=== PATIENT | female | born 1955 | race Caucasian/White ===

== ENCOUNTER → 2016-10-16 | Outpatient (CLI) | payer MEDICARE, MEDICAID ==
[~2016-10-16] MED LIST: ALKA SELTZER PL PO; AMBIEN 5MG TABLE5 MG PO; CLARITIN 1010 MG/TAB PO; FLAGYL500 MG PO; LISINOPRIL/HCTZ1 TAB PO; LORTAB 5/500 501 TAB PO; NAPROSYN500 MG PO; NATURAL L-LYSI500 MG PO; NORCO 325 MG-51 TAB PO; NORVASC 10MG10 MG PO; OMEGA-31 SGL PO; OXY IR5 MG PO; OXYCODONE15 MG PO; PHENERGAN 25 TA25 MG PO; PRED FORTE 1 ML1 ML OU; PRIL40 PO; PRILOSEC 20MG20 MG PO; RESTASIS 60VL PO; TOPROL XL 50MG50 MG PO; TYLENOL 8 HR PO; TYLENOL PM EXTR1 TA1 PO; ULTRAM 50MG TAB50 MG PO; ULTRAM ER200 MG PO; VITAMIN B-1000 MCG/T PO; VITAMIN D 1001000 IU PO; VITAMIN D1000 IU PO; ZOFRAN 4MG T4 MG/TAB PO; ZOFRAN8 MG PO; ZYRTEC 10MG10 MG PO
== END ==
LOC: MC.RAD 09:55
DX: Z12.31 Encounter for screening mammogram for malignant neoplasm of breast (principal)

== ENCOUNTER 2017-01-31 08:22 | Day surgery (SDC) | payer MEDICARE, MEDICAID ==
[~2017-01-31] VITALS: Ht 167.6 cm; Wt 98.6 kg
[~2017-01-31 08:22] MED LIST changes: -AMBIEN 5MG TABLE5 MG PO; -NATURAL L-LYSI500 MG PO; -NORCO 325 MG-51 TAB PO; -NORVASC 10MG10 MG PO; -PHENERGAN 25 TA25 MG PO; -PRED FORTE 1 ML1 ML OU; -PRIL40 PO; -RESTASIS 60VL PO; -TOPROL XL 50MG50 MG PO; -TYLENOL 8 HR PO; -VITAMIN D 1001000 IU PO; -ZYRTEC 10MG10 MG PO
[2017-01-31 09:07] VITALS: BP 187/98; PULSE 77; TEMP 98.2
[2017-01-31] MEDS ORDERED: TYLENOL 8 HR PO (09:34)
[2017-01-31] MEDS ORDERED: NORVASC 10MG10 MG PO (09:34)
[2017-01-31] MEDS ORDERED: AMBIEN 5MG TABLE5 MG PO (09:35)
[2017-01-31] MEDS ORDERED: NATURAL L-LYSI500 MG PO (09:39)
[2017-01-31] MEDS ORDERED: RESTASIS 60VL PO (09:40)
[2017-01-31] MEDS ORDERED: PRED FORTE 1 ML1 ML OU (09:41)
[2017-01-31 10:34] VITALS: BP 161/108; PULSE 77; TEMP 98.3
[2017-01-31 10:50] VITALS: BP 173/91; PULSE 70
[2017-01-31 11:05] VITALS: BP 188/95; PULSE 70
[2017-01-31] MEDS ORDERED: PRIL40 PO (11:13)
[2017-01-31 11:20] VITALS: BP 166/88; PULSE 68
== END 2017-01-31 11:30 | disposition home or self-care (01) ==
LOC: SDCO 08:22
DX: K22.70 Barrett's esophagus without dysplasia (principal); K22.2 Esophageal obstruction; K29.30 Chronic superficial gastritis without bleeding; K21.9 Gastro-esophageal reflux disease without esophagitis; K57.92 Diverticulitis of intestine, part unspecified, without perforation or abscess without bleeding; I10 Essential (primary) hypertension; M19.90 Unspecified osteoarthritis, unspecified site; Z96.653 Presence of artificial knee joint, bilateral; Z90.49 Acquired absence of other specified parts of digestive tract; Z90.710 Acquired absence of both cervix and uterus
CPT/HCPCS: C1726; J2704; J7030

== ENCOUNTER 2017-03-09 10:20 | Emergency (ER) | payer MEDICARE, MEDICAID ==
[~2017-03-09] VITALS: Ht 167.6 cm; Wt 98.5 kg
[~2017-03-09 10:20] MED LIST changes: +AMBIEN 5MG TABLE5 MG PO; +NATURAL L-LYSI500 MG PO; +NORVASC 10MG10 MG PO; +PRED FORTE 1 ML1 ML OU; +PRIL40 PO; +RESTASIS 60VL PO; +TYLENOL 8 HR PO
[2017-03-09 10:21] VITALS: TEMP 99.2
[2017-03-09 10:51] LABS: BASO # 0.1 (0.0-0.2); BASO % 0.7 % (0.0-2.0); EOS # 0.1 (0.0-0.7); EOS % 1.5 % (0-4.0); GRAN # 3.2 (1.4-6.5); GRAN % 44.7 % (42.2-75.2); HEMATOCRIT 39.7 % (37.0-47.0); HEMOGLOBIN 14.2 g/dl (12.5-16.0); LYMPH # 3.4 (1.2-3.4); LYMPH % 46.7 % (20.0-51.0); MEAN CELL VOLUME 93 fl (80.0-100.0); MEAN CORPUSCULAR HEMOGLOBIN 33 pg (27.0-31.0); MEAN CORPUSCULAR HGB CONC 36 g/dl (33.0-37.0); MEAN PLATELET VOLUME 9.7 fl (7.4-10.4); MONO # 0.4 (0.1-0.6); MONO % 6.1 % (1.7-9.3); PLATELET COUNT 220 K/mm3 (130-400); RED BLOOD COUNT 4.28 M/mm3 (4.10-5.30); WHITE BLOOD COUNT 7.2 K/mm3 (4.8-10.8)
[2017-03-09] MEDS ORDERED: NORVASC 10MG10 MG PO (11:08)
[2017-03-09 11:12] LABS: PH 6 (5-8); SQUAMOUS EPITHELIAL 0-2 /hpf; URINE APPEARANCE Clear; URINE BACTERIA None Seen /hpf; URINE BILIRUBIN Negative (NEGATIVE); URINE BLOOD Negative (NEGATIVE); URINE COLOR Yellow; URINE GLUCOSE Negative (NEGATIVE); URINE KETONE Negative (NEGATIVE); URINE RBC None Seen /hpf; URINE UROBILINOGEN Negative (NEGATIVE); URINE WBC 0-2 /hpf
[2017-03-09] MEDS ORDERED: AMBIEN 5MG TABLE5 MG PO (11:12)
[2017-03-09] MEDS ORDERED: ZYRTEC 10MG10 MG PO (11:14)
[2017-03-09] MEDS ORDERED: VITAMIN D 1001000 IU PO (11:15)
[2017-03-09 11:28] LABS: ADJUSTED CALCIUM 9.1 mg/dL (8.4-10.2); ALBUMIN 4.6 gm/dL (3.5-5.0); CALCIUM 9.6 mg/dL (8.4-10.2); CREATININE, serum 0.65 mg/dL (0.52-1.25); POTASSIUM 3.6 mmol/L (3.4-5.0); TOTAL PROTEIN 7.9 gm/dL (6.4-8.2)
[2017-03-09] MEDS ORDERED: PHENERGAN 25 TA25 MG PO (12:22)
[2017-03-09] MEDS ORDERED: NORCO 325 MG-51 TAB PO (12:22)
[2017-03-09] MEDS ORDERED: TOPROL XL 50MG50 MG PO (12:22)
[2017-03-09 13:30] VITALS: BP 170/97; PULSE 96
== END 2017-03-09 13:50 | disposition home or self-care (01) ==
LOC: COL.ER 10:20
PROVIDERS: Emergency Medicine
DX: R42 Dizziness and giddiness (principal); T50.2X5A Adverse effect of carbonic-anhydrase inhibitors, benzothiadiazides and other diuretics, initial encounter; R10.13 Epigastric pain; G89.29 Other chronic pain; K22.70 Barrett's esophagus without dysplasia; R11.0 Nausea; R51 Headache; R20.2 Paresthesia of skin; I10 Essential (primary) hypertension
CPT/HCPCS: J2550; J7030

== ENCOUNTER → 2017-03-28 | Outpatient (CLI) | payer MEDICARE, MEDICAID ==
[~2017-03-28] MED LIST changes: +NORCO 325 MG-51 TAB PO; +PHENERGAN 25 TA25 MG PO; +TOPROL XL 50MG50 MG PO; +VITAMIN D 1001000 IU PO; +ZYRTEC 10MG10 MG PO
== END ==
LOC: COL.RAD 09:35
DX: N28.89 Other specified disorders of kidney and ureter (principal)

== ENCOUNTER → 2017-03-31 | Outpatient (CLI) | payer MEDICARE, MEDICAID | LOC: COL.RAD 12:43 | DX: K57.30 Diverticulosis of large intestine without perforation or abscess without bleeding (principal); K44.9 Diaphragmatic hernia without obstruction or gangrene; N13.30 Unspecified hydronephrosis; Z90.710 Acquired absence of both cervix and uterus; Z90.49 Acquired absence of other specified parts of digestive tract | CPT/HCPCS: Q9967 ==

== ENCOUNTER 2017-07-14 09:23 | Emergency (ER) | payer MEDICARE, MEDICAID ==
[~2017-07-14] VITALS: Ht 167.6 cm; Wt 92.7 kg
[2017-07-14 09:26] VITALS: TEMP 98.5
[2017-07-14 10:19] LABS: BASO # 0.1 (0.0-0.2); BASO % 0.8 % (0.0-2.0); EOS % 0.6 % (0-4.0); GRAN # 4.2 (1.4-6.5); HEMATOCRIT 46.3 % (37.0-47.0); HEMOGLOBIN 15.2 g/dl (12.5-16.0); LYMPH # 2.5 (1.2-3.4); MEAN CELL VOLUME 100 fl (80.0-100.0); MEAN CORPUSCULAR HEMOGLOBIN 33 pg (27.0-31.0); MEAN CORPUSCULAR HGB CONC 33 g/dl (33.0-37.0); MONO # 0.4 (0.1-0.6); MONO % 5.3 % (1.7-9.3); PLATELET COUNT 237 K/mm3 (130-400); RED BLOOD COUNT 4.62 M/mm3 (4.10-5.30); WHITE BLOOD COUNT 7.2 K/mm3 (4.8-10.8)
[2017-07-14 10:31] LABS: ADJUSTED CALCIUM 9.2 mg/dL (8.4-10.2); ALANINE AMINOTRANSFERASE 78 U/L (9-52); ALBUMIN 5.6 gm/dL (3.5-5.0); ALKALINE PHOSPHATASE 172 U/L (50-136); ANION GAP 16 mmol/L (7-16); BLOOD UREA NITROGEN 14 mg/dL (7-17); CALCIUM 10.5 mg/dL (8.4-10.2); CARBON DIOXIDE 24 mmol/L (22-30); CHLORIDE 102 mmol/L (98-107); CREATININE, serum 0.62 mg/dL (0.52-1.25); GLUCOSE 93 mg/dL (74-106); MAGNESIUM 2.1 mg/dL (1.6-2.3); POTASSIUM 3.9 mmol/L (3.4-5.0); SODIUM 142 mmol/L (137-145); TOTAL PROTEIN 9.2 gm/dL (6.4-8.2)
[2017-07-14 10:45] LABS: TROPONIN-I < 0.012 ng/mL (0.000-0.034)
[2017-07-14] MEDS ORDERED: PRIL40 PO (11:03)
[2017-07-14] MEDS ORDERED: COZAAR 25MG25 MG/TAB PO (11:03)
[2017-07-14] MEDS ORDERED: NORVASC 10MG10 MG PO (11:03)
[2017-07-14] MEDS ORDERED: ULTRAM 50MG TAB50 MG PO (11:05)
[2017-07-14] MEDS ORDERED: ZYRTEC 10MG10 MG PO (11:05)
[2017-07-14] MEDS ORDERED: AMBIEN 5MG TABLE5 MG PO (11:06)
[2017-07-14] MEDS ORDERED: ALKA-SELTZER GO1 TE1 PO (11:06)
[2017-07-14] MEDS ORDERED: TYLENOL 8 HR PO (11:06)
[2017-07-14] MEDS ORDERED: CEPHALEXIN500 M1 PO (11:07)
[2017-07-14] MEDS ORDERED: STOOL SOFTENER100 M2 PO (11:08)
[2017-07-14] MEDS ORDERED: EPA FISH OIL1 SGL PO (11:08)
[2017-07-14] MEDS ORDERED: FLORAJEN A20 Billion PO (11:08)
[2017-07-14] MEDS ORDERED: L-LYSINE500 M1 PO (11:09)
[2017-07-14] MEDS ORDERED: VITAMIN B COMPL1 SGL PO (11:09)
[2017-07-14] MEDS ORDERED: MASON NATURAL2000 IU PO (11:09)
[2017-07-14] MEDS ORDERED: LINZESS290CAP PO (11:10)
[2017-07-14] MEDS ORDERED: RESTASIS 60VL OU (11:11)
[2017-07-14] MEDS ORDERED: REFRESH TEARS 330 ML OP (11:14)
[2017-07-14] MEDS ORDERED: VALIUM 5MG T5 MG/TAB PO (12:48)
[2017-07-14] MEDS ORDERED: BUSPAR5 MG PO (12:48)
[2017-07-14 13:35] VITALS: BP 163/92; PULSE 83
== END 2017-07-14 13:35 | disposition home or self-care (01) ==
LOC: COL.ER 09:23
PROVIDERS: Emergency Medicine
DX: R25.1 Tremor, unspecified (principal); I10 Essential (primary) hypertension; Z90.710 Acquired absence of both cervix and uterus; Z90.49 Acquired absence of other specified parts of digestive tract
CPT/HCPCS: J2060; J2405; J7030

== ENCOUNTER → 2017-08-08 | Outpatient (CLI) | payer MEDICARE, MEDICAID ==
[~2017-08-08] VITALS: Ht 167.6 cm; Wt 88.3 kg
[~2017-08-08] MED LIST changes: +ALKA-SELTZER GO1 TE1 PO; +BUSPAR5 MG PO; +CEPHALEXIN500 M1 PO; +COZAAR 25MG25 MG/TAB PO; +EPA FISH OIL1 SGL PO; +FLORAJEN A20 Billion PO; +L-LYSINE500 M1 PO; +LINZESS290CAP PO; +MASON NATURAL2000 IU PO; +PROBIOTIC-SUNMARK PO; +REFRESH TEARS 330 ML OP; +RESTASIS 60VL OU; +STOOL SOFTENER100 M2 PO; +VALIUM 5MG T5 MG/TAB PO; +VITAMIN B COMPL1 SGL PO
[2017-08-08 12:06] VITALS: BP 184/100; PULSE 82
[2017-08-08 13:40] VITALS: BP 148/75; PULSE 86
[2017-08-08 13:50] VITALS: BP 169/98; PULSE 76
[2017-08-08 14:10] VITALS: BP 176/96; PULSE 74
== END ==
LOC: COL.RAD 10:50
DX: J34.1 Cyst and mucocele of nose and nasal sinus (principal); R41.89 Other symptoms and signs involving cognitive functions and awareness
CPT/HCPCS: G9654; J2704

== ENCOUNTER → 2017-10-27 | Outpatient (CLI) | payer MEDICARE, MEDICAID ==
[~2017-10-27] MED LIST changes: +LINZESS72 MCG PO
== END ==
LOC: MC.RAD 10:38
DX: Z12.31 Encounter for screening mammogram for malignant neoplasm of breast (principal)

== ENCOUNTER → 2017-11-07 | Outpatient (CLI) | payer MEDICARE, MEDICAID | LOC: COL.RAD 07:47 | DX: K29.70 Gastritis, unspecified, without bleeding (principal) | CPT/HCPCS: A9541 ==

== ENCOUNTER 2017-11-16 10:11 | Emergency (ER) | payer MEDICARE, MEDICAID ==
[~2017-11-16] VITALS: Ht 167.6 cm; Wt 89.4 kg
[2017-11-16 10:14] VITALS: BP 173/88; PULSE 79; TEMP 98.7
[2017-11-16 10:35] LABS: COLLECTION METHOD CLEAN CATCH
[2017-11-16 10:42] LABS: PH 6 (5-8); SQUAMOUS EPITHELIAL None Seen /hpf; URINE APPEARANCE Clear; URINE BACTERIA None Seen /hpf; URINE BILIRUBIN Negative (NEGATIVE); URINE BLOOD Negative (NEGATIVE); URINE COLOR Colorless; URINE GLUCOSE Negative (NEGATIVE); URINE KETONE Negative (NEGATIVE); URINE LEUKOCYTE ESTERASE Trace (NEGATIVE); URINE NITRATE Negative (NEGATIVE); URINE PROTEIN(semi-quant) Negative (NEGATIVE); URINE RBC 0-2 /hpf; URINE UROBILINOGEN Negative (NEGATIVE)
[2017-11-16 11:10] LABS: ALBUMIN 4.5 gm/dL (3.5-5.0); BILIRUBIN,TOTAL 0.5 mg/dL (0.0-1.0); CALCIUM 9.6 mg/dL (8.4-10.2); CREATININE, serum 0.64 mg/dL (0.52-1.25); POTASSIUM 3.9 mmol/L (3.4-5.0); TOTAL PROTEIN 7.9 gm/dL (6.4-8.2)
[2017-11-16 11:49] LABS: BASO % 0.7 % (0.0-2.0); EOS # 0.1 (0.0-0.7); EOS % 1.1 % (0-4.0); GRAN # 3.1 (1.4-6.5); GRAN % 55.9 % (42.2-75.2); HEMATOCRIT 39.6 % (37.0-47.0); HEMOGLOBIN 14.2 g/dl (12.5-16.0); LYMPH % 35.9 % (20.0-51.0); MEAN CELL VOLUME 93 fl (80.0-100.0); MEAN CORPUSCULAR HEMOGLOBIN 33 pg (27.0-31.0); MEAN CORPUSCULAR HGB CONC 36 g/dl (33.0-37.0); MEAN PLATELET VOLUME 9.9 fl (7.4-10.4); MONO # 0.3 (0.1-0.6); MONO % 6.2 % (1.7-9.3); PLATELET COUNT 202 K/mm3 (130-400); RED BLOOD COUNT 4.25 M/mm3 (4.10-5.30); REDCELL DISTRIBUTION WIDTH-CV 13.2 % (11.5-14.5)
[2017-11-16] MEDS ORDERED: AMOXICILLIN875 MG PO (12:08)
[2017-11-16] MEDS ORDERED: ZOFRAN ODT4 MG PO (12:08)
== END 2017-11-16 12:19 | disposition home or self-care (01) ==
LOC: COL.ER 10:11
PROVIDERS: Emergency Medicine
DX: J32.9 Chronic sinusitis, unspecified (principal); R42 Dizziness and giddiness; I10 Essential (primary) hypertension

== ENCOUNTER 2017-11-18 12:08 | Emergency (ER) | payer MEDICARE, MEDICAID ==
[~2017-11-18] VITALS: Ht 167.6 cm; Wt 88.6 kg
[~2017-11-18 12:08] MED LIST changes: +AMOXICILLIN875 MG PO; +ZOFRAN ODT4 MG PO
[2017-11-18 12:10] VITALS: TEMP 98.5
[2017-11-18 13:03] LABS: BASO % 0.5 % (0.0-2.0); EOS # 0.1 (0.0-0.7); EOS % 1.2 % (0-4.0); GRAN # 2.7 (1.4-6.5); GRAN % 47.8 % (42.2-75.2); HEMATOCRIT 39.7 % (37.0-47.0); HEMOGLOBIN 13.8 g/dl (12.5-16.0); LYMPH # 2.4 (1.2-3.4); MEAN CELL VOLUME 94 fl (80.0-100.0); MEAN CORPUSCULAR HEMOGLOBIN 33 pg (27.0-31.0); MEAN CORPUSCULAR HGB CONC 35 g/dl (33.0-37.0); MEAN PLATELET VOLUME 9.5 fl (7.4-10.4); MONO # 0.5 (0.1-0.6); MONO % 8.3 % (1.7-9.3); PLATELET COUNT 211 K/mm3 (130-400); RED BLOOD COUNT 4.22 M/mm3 (4.10-5.30); REDCELL DISTRIBUTION WIDTH-CV 13.2 % (11.5-14.5)
[2017-11-18 13:05] LABS: COLLECTION METHOD CLEAN CATCH
[2017-11-18 13:10] LABS: PH 6 (5-8); SQUAMOUS EPITHELIAL None Seen /hpf; URINE APPEARANCE Clear; URINE BACTERIA None Seen /hpf; URINE BILIRUBIN Negative (NEGATIVE); URINE BLOOD Negative (NEGATIVE); URINE COLOR Straw; URINE GLUCOSE Negative (NEGATIVE); URINE KETONE Negative (NEGATIVE); URINE LEUKOCYTE ESTERASE Trace (NEGATIVE); URINE NITRATE Negative (NEGATIVE); URINE PROTEIN(semi-quant) Negative (NEGATIVE); URINE RBC 0-2 /hpf; URINE UROBILINOGEN Negative (NEGATIVE)
[2017-11-18 13:14] LABS: ALANINE AMINOTRANSFERASE 31 U/L (9-52); ALBUMIN 4.4 gm/dL (3.5-5.0); ALKALINE PHOSPHATASE 101 U/L (50-136); ANION GAP 13 mmol/L (7-16); AST,SGOT 30 U/L (15-37); BILIRUBIN,TOTAL 0.4 mg/dL (0.0-1.0); BLOOD UREA NITROGEN 15 mg/dL (7-17); CALCIUM 9.4 mg/dL (8.4-10.2); CARBON DIOXIDE 28 mmol/L (22-30); CHLORIDE 102 mmol/L (98-107); CREATININE, serum 0.59 mg/dL (0.52-1.25); GLUCOSE 91 mg/dL (74-106); POTASSIUM 3.7 mmol/L (3.4-5.0); SODIUM 144 mmol/L (137-145); TOTAL PROTEIN 7.8 gm/dL (6.4-8.2)
[2017-11-18 13:22] LABS: ACETAMINOPHEN < 10 ug/mL (10-30); ALCOHOL(ethanol),MEDICAL < 10 mg/dL; SALICYLATE < 1.0 mg/dL
[2017-11-18 13:31] LABS: TRICYCLIC ANTIDEPRESS URINE NEGATIVE
[2017-11-18] MEDS ORDERED: NORVASC 10MG10 MG PO (13:52)
[2017-11-18] MEDS ORDERED: COZAAR 25MG25 MG/TAB PO (13:52)
[2017-11-18 21:00] VITALS: BP 151/86; PULSE 73
== END 2017-11-18 21:57 ==
LOC: COL.ER 12:08
PROVIDERS: Physician Assistant
DX: F32.9 Major depressive disorder, single episode, unspecified (principal); I10 Essential (primary) hypertension; F41.9 Anxiety disorder, unspecified; K21.9 Gastro-esophageal reflux disease without esophagitis

== ENCOUNTER 2018-03-12 09:35 | Emergency (ER) | payer MEDICARE, MEDICAID ==
[~2018-03-12] VITALS: Ht 167.6 cm; Wt 90.9 kg
[2018-03-12 09:39] VITALS: TEMP 98.1
[2018-03-12] MEDS ORDERED: KLONOPIN 0.5MG0.5 MG PO (09:57)
[2018-03-12] MEDS ORDERED: AMITRIPTYLINE H50 M1 PO (10:02)
[2018-03-12] MEDS ORDERED: VENLAFAXINE225 MG PO (10:03)
[2018-03-12] MEDS ORDERED: REMERON30 MG PO (10:04)
[2018-03-12] MEDS ORDERED: NORCO 325 MG-51 TAB PO (10:24)
[2018-03-12 10:44] VITALS: BP 166/95; PULSE 82
== END 2018-03-12 10:46 | disposition home or self-care (01) ==
LOC: COL.ER 09:35
DX: S40.012A Contusion of left shoulder, initial encounter (principal); K21.9 Gastro-esophageal reflux disease without esophagitis; I10 Essential (primary) hypertension; Z79.891 Long term (current) use of opiate analgesic; W01.0XXA Fall on same level from slipping, tripping and stumbling without subsequent striking against object, initial encounter; Y92.009 Unspecified place in unspecified non-institutional (private) residence as the place of occurrence of the external cause

== ENCOUNTER → 2018-03-23 | Outpatient (CLI) | payer MEDICARE, MEDICAID ==
[~2018-03-23] VITALS: Ht 167.6 cm; Wt 97.0 kg
[~2018-03-23] MED LIST changes: +AMITRIPTYLINE H50 M1 PO; +KLONOPIN 0.5MG0.5 MG PO; +REMERON30 MG PO; +VENLAFAXINE225 MG PO
[2018-03-23 12:37] VITALS: BP 161/92; PULSE 94
[2018-03-23 14:15] VITALS: BP 127/73; PULSE 69
[2018-03-23 14:30] VITALS: BP 119/72; PULSE 68
[2018-03-23 14:45] VITALS: BP 127/80; PULSE 67
== END ==
LOC: COL.RAD 12:06
DX: M75.122 Complete rotator cuff tear or rupture of left shoulder, not specified as traumatic (principal); M25.412 Effusion, left shoulder
CPT/HCPCS: J2250; J2704; J3010

== ENCOUNTER 2018-08-31 16:38 | Emergency (ER) | payer MEDICARE, MEDICAID ==
[~2018-08-31] VITALS: Ht 167.6 cm; Wt 100.0 kg
[2018-08-31 16:40] VITALS: TEMP 97.8
[2018-08-31 18:19] VITALS: BP 134/82; PULSE 80
== END 2018-08-31 18:16 | disposition home or self-care (01) ==
LOC: COL.ER 16:38
DX: M25.562 Pain in left knee (principal); I10 Essential (primary) hypertension; M79.7 Fibromyalgia; Z90.49 Acquired absence of other specified parts of digestive tract; Z90.710 Acquired absence of both cervix and uterus
CPT/HCPCS: J1885; J2360; J2550; J3010

== ENCOUNTER → 2018-10-16 10:00 | Outpatient (RCR) | payer MEDICARE, MEDICAID | END | disposition home or self-care (01) | LOC: WSC 09-11 10:39 → WSPT 10-02 14:30 → WSC 10-06 12:45 | DX: M25.562 Pain in left knee (principal) ==

== ENCOUNTER → 2018-11-23 | Outpatient (CLI) | payer MEDICARE, MEDICAID | LOC: MC.RAD 13:56 | DX: Z12.31 Encounter for screening mammogram for malignant neoplasm of breast (principal) ==

== ENCOUNTER → 2020-01-05 | Outpatient (CLI) | payer MEDICARE, MEDICAID | LOC: MC.RAD 11:13 | DX: Z12.31 Encounter for screening mammogram for malignant neoplasm of breast (principal) ==

== ENCOUNTER → 2021-01-05 | Outpatient (CLI) | payer MEDICARE, MEDICAID | LOC: MC.RAD 11:18 | DX: Z12.31 Encounter for screening mammogram for malignant neoplasm of breast (principal) ==

== ENCOUNTER 2021-12-18 12:45 | Outpatient (RCR) | payer MEDICARE, MEDICAID | END 2021-12-22 | disposition still patient (30) | LOC: WSPT | DX: M79.7 Fibromyalgia (principal); M54.50 Low back pain, unspecified ==

== ENCOUNTER 2022-01-17 11:15 | Outpatient (RCR) | payer MEDICARE, MEDICAID | END 2022-01-22 | disposition home or self-care (01) | LOC: WSPT | DX: M79.7 Fibromyalgia (principal); M54.50 Low back pain, unspecified; G89.29 Other chronic pain ==

== ENCOUNTER → 2022-01-24 | Outpatient (CLI) | payer MEDICARE, MEDICAID | LOC: MC.RAD 10:15 | DX: Z12.31 Encounter for screening mammogram for malignant neoplasm of breast (principal) ==

== ENCOUNTER 2022-02-13 10:30 | Outpatient (RCR) | payer MEDICARE, MEDICAID ==
[2022-02-15] MEDS ORDERED: BENTYL 20MG20 MG/TAB PO (08:11)
[2022-02-15] MEDS ORDERED: DESYREL 50MG50 MG PO (08:11)
[2022-02-15] MEDS ORDERED: CEPHALEXIN500 M1 PO (08:12)
[2022-02-15] MEDS ORDERED: EFFEXOR XR75 MG/CAP PO (08:12)
[2022-02-15] MEDS ORDERED: MELATONIN ER10 MG PO (08:16)
[2022-02-15] MEDS ORDERED: PEPTO BISMOL262 MG PO (08:16)
[2022-02-15] MEDS ORDERED: METAMUCIL0.52 G1 PO (08:17)
[2022-02-15] MEDS ORDERED: LYSINE 500500 MG/TAB PO (08:19)
== END 2022-02-21 | disposition home or self-care (01) ==
LOC: WSPT
DX: M79.7 Fibromyalgia (principal); M54.50 Low back pain, unspecified; G89.29 Other chronic pain

== ENCOUNTER 2022-02-15 07:07 | Day surgery (SDC) | payer MEDICARE, MEDICAID ==
[~2022-02-15] VITALS: Ht 167.6 cm; Wt 104.6 kg
[2022-02-15 07:53] VITALS: BP 174/91; PULSE 83; TEMP 97.3
[2022-02-15] MEDS ORDERED: DESYREL 50MG50 MG PO (08:11)
[2022-02-15] MEDS ORDERED: BENTYL 20MG20 MG/TAB PO (08:11)
[2022-02-15] MEDS ORDERED: EFFEXOR XR75 MG/CAP PO (08:12)
[2022-02-15] MEDS ORDERED: CEPHALEXIN500 M1 PO (08:12)
[2022-02-15] MEDS ORDERED: PEPTO BISMOL262 MG PO (08:16)
[2022-02-15] MEDS ORDERED: MELATONIN ER10 MG PO (08:16)
[2022-02-15] MEDS ORDERED: METAMUCIL0.52 G1 PO (08:17)
[2022-02-15] MEDS ORDERED: LYSINE 500500 MG/TAB PO (08:19)
[2022-02-15 09:15] VITALS: BP 156/93; PULSE 93; TEMP 97.3
--- NOTE | 2022-02-15 09:15 | NUR ---
PATIENT ARRIVES TO ROOM 6 VIA CART. ASSIST TO CHAIR X 1. VITAL SIGNS WNL. WILL CONTINUE TO MONITOR.
[2022-02-15 09:45] VITALS: BP 165/103; PULSE 68
--- NOTE | 2022-02-15 09:45 | NUR ---
PATIENT IS READY FOR DISCHARGE. VITAL SIGNS WNL. DISCHARGE INSTRUCTIONS REVIEWED. DOCTOR AT BEDSIDE. WILL DISCHARGE ONCE SHE IS READY.
== END 2022-02-15 09:54 ==
LOC: SDCO 07:07
DX: K22.2 Esophageal obstruction (principal); K22.70 Barrett's esophagus without dysplasia; K21.9 Gastro-esophageal reflux disease without esophagitis; K29.30 Chronic superficial gastritis without bleeding
CPT/HCPCS: C1726; J2704; J7030

== ENCOUNTER 2022-03-21 10:30 | Outpatient (RCR) | payer MEDICARE, MEDICAID ==
[~2022-03-21 10:30] MED LIST changes: +BENTYL 20MG20 MG/TAB PO; +DESYREL 50MG50 MG PO; +EFFEXOR XR75 MG/CAP PO; +LYSINE 500500 MG/TAB PO; +MELATONIN ER10 MG PO; +METAMUCIL0.52 G1 PO; +PEPTO BISMOL262 MG PO
== END 2022-03-24 | disposition home or self-care (01) ==
LOC: WSPT
DX: M79.7 Fibromyalgia (principal); M54.50 Low back pain, unspecified; G89.29 Other chronic pain

== ENCOUNTER 2022-04-03 13:30 | Outpatient (RCR) | payer MEDICARE, MEDICAID | END 2022-04-03 14:00 | disposition home or self-care (01) | LOC: WSPT 13:30 | DX: M79.7 Fibromyalgia (principal); M54.50 Low back pain, unspecified; G89.29 Other chronic pain ==

== ENCOUNTER → 2022-07-02 | Outpatient (CLI) | payer MEDICARE, MEDICAID | LOC: COL.RAD 11:30 | DX: K57.30 Diverticulosis of large intestine without perforation or abscess without bleeding (principal); N28.9 Disorder of kidney and ureter, unspecified | CPT/HCPCS: Q9967 ==

== ENCOUNTER 2022-09-17 07:54 | Day surgery (SDC) | payer MEDICARE, MEDICAID ==
[2022-09-16 09:49] LABS: HEMATOCRIT 41.8 % (37.0-47.0); HEMOGLOBIN 14.8 g/dl (12.5-16.0); MEAN CELL VOLUME 93 fl (80.0-100.0); MEAN CORPUSCULAR HEMOGLOBIN 33 pg (27-31); MEAN CORPUSCULAR HGB CONC 35 g/dl (33.0-37.0); MEAN PLATELET VOLUME 9.5 fl (7.4-10.4); PLATELET COUNT 237 K/mm3 (130-400); RED BLOOD COUNT 4.48 M/mm3 (4.10-5.30); REDCELL DISTRIBUTION WIDTH-CV 13.2 % (11.5-14.5)
[2022-09-16 10:09] LABS: CALCIUM 9.6 mg/dL (8.4-10.2); CREATININE, serum 0.81 mg/dL (0.57-1.11); POTASSIUM 4.1 mmol/L (3.5-4.5)
[2022-09-17] VITALS (10 sets, daily range): BP systolic 118–183; BP diastolic 54–85; PULSE 70–82; TEMP 97.1–98.2
[~2022-09-17] VITALS: Ht 167.6 cm; Wt 104.4 kg
[~2022-09-17 07:54] MED LIST changes: +FLEXERIL 1010 MG/TAB PO; +PERCOCET 325 MG1 TA2 PO
[2022-09-17] MEDS ORDERED: COZAAR100 MG PO (10:04)
[2022-09-17] MEDS ORDERED: RESTASIS0.05% OP (10:13)
[2022-09-17] MEDS ORDERED: COLACE 100100 MG/CAP PO (10:49)
[2022-09-17] MEDS ORDERED: NORCO 325 MG-51 TAB PO (10:49)
--- NOTE | 2022-09-17 15:34 | NUR ---
KPAD APPLIED TO RIGHT SHOULDER FOR PAIN.
[2022-09-17 17:22] LABS: BASO % 0.3 % (0.0-2.0); GRAN # 6.7 K/mm3 (1.4-6.5); GRAN % 87.3 % (42.2-75.2); HEMATOCRIT 41.1 % (37.0-47.0); HEMOGLOBIN 14.1 g/dl (12.5-16.0); LYMPH # 0.7 K/mm3 (1.2-3.4); LYMPH % 9.1 % (20.0-51.0); MEAN CELL VOLUME 95 fl (80.0-100.0); MEAN CORPUSCULAR HEMOGLOBIN 33 pg (27-31); MEAN CORPUSCULAR HGB CONC 34 g/dl (33.0-37.0); MEAN PLATELET VOLUME 9.7 fl (7.4-10.4); MONO # 0.2 K/mm3 (0.1-0.6); PLATELET COUNT 231 K/mm3 (130-400); RED BLOOD COUNT 4.33 M/mm3 (4.10-5.30); REDCELL DISTRIBUTION WIDTH-CV 13.1 % (11.5-14.5)
[2022-09-17 17:40] LABS: CALCIUM 9.2 mg/dL (8.4-10.2); CREATININE, serum 0.84 mg/dL (0.57-1.11); POTASSIUM 4.2 mmol/L (3.5-4.5)
--- NOTE | 2022-09-17 21:19 | NUR ---
Patient A/O, head to toe assessment done, see shift assessment, reports abdominal pain which she rated it as 8/10, oxycodone given, has 7 lap sites clean, dry and intact, denies further needs, call light and personal items within reach, will continue to monitor.
[2022-09-18 00:05] VITALS: BP 130/58; PULSE 63; TEMP 97.8
--- NOTE | 2022-09-18 00:54 | NUR ---
Patient adjusted in bed at this time, reports pain didn't rate the pain, oxycodone given as ordered and as per request, heating pad off at this time per patient request, will continue to monitor.
--- NOTE | 2022-09-18 01:07 | NUR ---
Patient called and still she rated her pain at 8/10, oxycodone given, reports she passed gas as well.
[2022-09-18 04:25] VITALS: BP 140/80; PULSE 66; TEMP 97.7
--- NOTE | 2022-09-18 06:19 | NUR ---
Hawkins catheter removed at this time and INT'd will report off to dayshift nurse.
[2022-09-18 07:21] VITALS: BP 150/70; PULSE 70; TEMP 97.9
[2022-09-18 07:23] LABS: CALCIUM 9.1 mg/dL (8.4-10.2); CREATININE, serum 0.74 mg/dL (0.57-1.11); POTASSIUM 4.3 mmol/L (3.5-4.5)
[2022-09-18 08:16] LABS: BASO % 0.3 % (0.0-2.0); GRAN # 5.3 K/mm3 (1.4-6.5); GRAN % 76.8 % (42.2-75.2); HEMATOCRIT 38.6 % (37.0-47.0); HEMOGLOBIN 13.3 g/dl (12.5-16.0); LYMPH # 1.3 K/mm3 (1.2-3.4); LYMPH % 18.4 % (20.0-51.0); MEAN CELL VOLUME 96 fl (80.0-100.0); MEAN CORPUSCULAR HEMOGLOBIN 33 pg (27-31); MEAN CORPUSCULAR HGB CONC 35 g/dl (33.0-37.0); MEAN PLATELET VOLUME 9.8 fl (7.4-10.4); MONO # 0.3 K/mm3 (0.1-0.6); MONO % 4.1 % (1.7-9.3); PLATELET COUNT 204 K/mm3 (130-400); RED BLOOD COUNT 4.04 M/mm3 (4.10-5.30); REDCELL DISTRIBUTION WIDTH-CV 13.2 % (11.5-14.5)
--- NOTE | 2022-09-18 08:41 | NUR ---
Pt Ox3, VSS, reports pain 8/10 to abdomen. Given add'l roxycodone per PRN order. Pt has been up to BR, urinating and passing gas, denies BM. Abdomen soft, lap sites CDI, umbilical site with dried drainage. Diet advanced, pt states that she wants to continue on fluids and advance herself slowly. Pt reports taking own Effexor "because I knew I hadn't had it yet." Denies having taken any other home medications. Instructed pt to refrain from taking home meds to avoid duplicate dosing.
--- NOTE | 2022-09-18 11:02 | NUR ---
Initial viist; Patient thanked Veterinary Technician Assistant for looking in on her and offering encouragement and thanking her for sharing her 'Testimony to God' for His blessings. Her surgical procedure turned out well with removal of mass without having to take her kidney. Veterinary Technician Assistant wished her a rapid and thorough recovery and good health with continued God's blessings.
--- NOTE | 2022-09-18 12:07 | NUR ---
Discussed d/c instructions with pt. Pt acknowledged understanding of all instructions. Pt encouraged to increase ambulation to aid in expelling gas and decrease abdominal pain. IV d/c, complete/intact. Pt packed belongings and dressed self in street clothes. Staff escorts pt from facility via WC.
[2022-09-27] MEDS ORDERED: CEPHALEXIN500 M1 PO (09:40)
== END 2022-09-18 12:50 | disposition home or self-care (01) ==
LOC: SDCO 07:54 → SURG 16:13 → SDCO 09-18 12:50
PROVIDERS: Urology
DX: C64.1 Malignant neoplasm of right kidney, except renal pelvis (principal); I10 Essential (primary) hypertension; E66.01 Morbid (severe) obesity due to excess calories; K21.9 Gastro-esophageal reflux disease without esophagitis; K22.70 Barrett's esophagus without dysplasia; F41.9 Anxiety disorder, unspecified; F43.10 Post-traumatic stress disorder, unspecified; F32.A Depression, unspecified; Z68.37 Body mass index [BMI] 37.0-37.9, adult; Z28.310 Unvaccinated for COVID-19; Z28.9 Immunization not carried out for unspecified reason; Z79.899 Other long term (current) drug therapy
CPT/HCPCS: OP; A4314; A9284; J0690; J1100; J1170; J2250; J2405; J2704; J2795; J3010; J7120

== ENCOUNTER 2022-12-25 14:41 | Emergency (ER) | payer MEDICARE, MEDICAID ==
[~2022-12-25] VITALS: Ht 167.6 cm; Wt 104.5 kg
[~2022-12-25 14:41] MED LIST changes: +COLACE 100100 MG/CAP PO; +COZAAR100 MG PO; +RESTASIS0.05% OP
[2022-12-25 14:52] VITALS: TEMP 98.8
[2022-12-25] MEDS ORDERED: FLEXERIL 1010 MG/TAB PO (17:38)
[2022-12-25 17:48] VITALS: BP 134/85; PULSE 79
== END 2022-12-25 17:48 | disposition home or self-care (01) ==
LOC: COL.ER 14:41
DX: S50.12XA Contusion of left forearm, initial encounter (principal); S80.02XA Contusion of left knee, initial encounter; M54.50 Low back pain, unspecified; Z96.652 Presence of left artificial knee joint; Z28.310 Unvaccinated for COVID-19; W18.30XA Fall on same level, unspecified, initial encounter
CPT/HCPCS: J1885

== ENCOUNTER → 2023-10-02 | Outpatient (CLI) | payer MEDICARE, MEDICAID ==
[~2023-10-02] MED LIST changes: +ALDACTONE 25MG25 M1 PO; +ELAVIL100 MG PO; +Iohexol 300 - 100 ML VIAL IV ONE; +NS 100 ML IV SCH; +QUESTRAN4 GM/9 GM PO
== END ==
LOC: COL.RAD 09:18
DX: C64.1 Malignant neoplasm of right kidney, except renal pelvis (principal); Z98.890 Other specified postprocedural states
CPT/HCPCS: Q9967

== ENCOUNTER → 2024-03-23 | Outpatient (CLI) | payer MEDICARE, MEDICAID ==
[~2024-03-23] MED LIST changes: +ARICEPT10 MG PO; +CARAFATE 1GM1 G PO; -Iohexol 300 - 100 ML VIAL IV ONE; +MAG-OX 400400 MG/TAB PO; -NS 100 ML IV SCH; +PROBIOTIC BLEN1 EACH PO; +VITAMIND3 5000 PO
== END ==
LOC: MC.RAD 10:17
DX: Z12.31 Encounter for screening mammogram for malignant neoplasm of breast (principal)